=== PATIENT | male | born 1995 | race Caucasian/White ===

== ENCOUNTER 2019-12-17 13:51 | Outpatient (CLI) | payer OTHER, SELFPAY ==
[2019-12-17 14:46] LABS: Basophils Percent Auto 0.3 % (0.2-1.2); Eosinophils Absolute Auto 0.1 K/mm3 (0-0.3); Eosinophils Percent Auto 1.6 % (0-4.4); Hematocrit 42.7 % (42.0-52.0); Hemoglobin 14.4 g/dL (14.0-18.0); Immature Granulocyte Absolute 0.02 K/mm3 (0.00-0.031); Immature Granulocyte Percent A 0.3 % (0-0.5); Lymphocytes Absolute Auto 1.91 K/mm3 (0.9-3.2); Lymphocytes Percent Auto 31.4 % (18.3-44.2); Mean Corpuscular HGB Conc 33.7 g/dl (32-36); Mean Corpuscular Hemoglobin 30.1 pg (26-34); Mean Corpuscular Volume 89.1 fl (80-100); Mean Platelet Volume 9.1 fl (7.4-10.4); Monocytes Absolute Auto 0.4 K/mm3 (0.1-0.6); Monocytes Percent Auto 7.2 % (2.6-8.5); Neutrophils Absolute Auto 3.6 K/mm3 (1.3-6.7); Neutrophils Percent Auto 59.2 % (45.5-73.1); Platelet Count Result 295 k/mm3 (150-375); Red Blood Count 4.79 M/mm3 (4.6-6.20); Red Cell Distribution Width 11.9 % (11.5-14.5); White Blood Count 6.1 K/mm3 (4.5-10.0)
[2019-12-17 15:14] LABS: Alanine Aminotransferase 24 U/L (4-50); Albumin Level 4.6 g/dL (3.5-5.1); Alkaline Phosphatase 72 U/L (38-126); Aspartate Amino Transferase 25 U/L (17-59); Bilirubin,Total 0.5 mg/dL (0.2-1.3); Blood Urea Nitrogen 15 mg/dL (9-20); Calcium 9.1 mg/dL (8.4-10.2); Carbon Dioxide 32 mmol/L (22-30); Chloride 100 mmol/L (98-107); Estimated Glomerular Filt Rate > 60; Glucose 85 mg/dL (75-110); Potassium 4.3 mmol/L (3.4-5.0); Sodium 140 mmol/L (137-145)
== END 2019-12-17 13:52 | disposition home or self-care (01) ==
PROVIDERS: PCP Family Medicine; Visit Provider Family Medicine
DX: R10.9 Unspecified abdominal pain (principal)
CPT/HCPCS: 36415; 80053; 85025

== ENCOUNTER 2020-02-25 06:49 | Outpatient (CLI) | payer OTHER, SELFPAY | END 2020-02-25 06:50 | disposition home or self-care (01) | PROVIDERS: PCP Family Medicine; Visit Provider Internal Medicine Gastroenterology | DX: Z01.818 Encounter for other preprocedural examination (principal); Z11.59 Encounter for screening for other viral diseases | CPT/HCPCS: 87635; C9803; U0003 ==

== ENCOUNTER 2020-02-27 00:51 | Day surgery (SDC) | payer OTHER, SELFPAY ==
[2020-02-22 15:07] VITALS: BMI 23.7
[2020-02-27 06:34] VITALS: BP 120/69; PULSE 75; RESP 16; TEMP 36.9; O2SAT 100
[2020-02-27] MEDS: LACTATED RINGERS 1,000 ML 150 ML IV CONT (06:53)
--- NOTE | 2020-02-27 07:19 | WPDANESEPPF ---
Anes - Initial Pre Proc Eval Procedure: Operation Date: 02/27/20 07:30 Proposed Procedures p Colonoscopy - Eric Guerrero MD Date/Time: 02/27/20 07:19 Surgeon: Eric Guerrero MD Pre Op Diagnosis: Change In Bowel Habits Patient Data Age: 24 Gender: M Height: 5 ft 10 in Weight: 75.2 kg Last Vital Signs Temp 98.5 F 02/27/20 06:34 Pulse 75 02/27/20 06:34 Resp 16 02/27/20 06:34 BP 120/69 02/27/20 06:34 Pulse Ox 100 02/27/20 06:34 Allergies Allergy/AdvReac Type Severity Reaction Status Date / Time No Known Allergies Allergy Verified 02/27/20 06:33 Home Medications Medication Instructions Recorded Confirmed Type No Home Medications 02/22/20 02/27/20 History Patient hx anesthesia problems: none Family hx anesthesia problems: none PMFSH Past Medical History Medical History (Updated 02/19/20 @ 09:26 by Bree Richter) Abnormal cystoscopy Bowel habit changes Chronic pericarditis Hepatitis A Surgical History Surgical History (System 02/19/20 @ 09:26 by Bree Richter) History of appendectomy Social History Social History (System 02/19/20 @ 09:26 by Bree Richter) Smoking status: Current every day smoker Tobacco type: e-cigarettes/vaping Second hand tobacco smoke exposure: Yes Alcohol intake: current Drinks per week: 8 Substance use type: marijuana Gender identity (if verbalized by the patient): Male Spiritual care concerns: No Agree to blood products: Yes Anes - Eval Final PreProcedure Day of Procedure 02/27/20 07:19 Patient weight: normal Heart: regular rate and rhythm Lungs: clear to auscultation Airway: Mallampati scale class II Neurological: alert and oriented Last oral intake: >/= 8 hours ASA classification: II Emergent: no Anesthetic plan: proceed Anesthesia type and monitoring: general GIVS and standard monitoring Informed Consent: The patient's anesthetic plan and its attendant risks and benefits were discussed with the patient/family/POA. Questions were solicited and answers provided to the satisfaction of the patient/family/POA.
--- NOTE | 2020-02-27 07:37 | PM.HPGS ---
History of Present Illness History of Present Illness Consent: Risks, benefits, and alternatives have been discussed and questions answered. Patient agrees to proceed with procedure. Chief complaint: Change In Bowel Habits Narrative: Rivas Perry is a 24 year old male with rlq pain and altered BM, normal CT scan Review of Systems Constitutional: Constitutional: Denies headache(s) and Denies weakness Eyes: Eyes: Denies blurry vision ENT: Reports Normal hearing present, Denies headache(s) and Denies neck pain Cardiovascular: Cardiovascular: Denies chest pain and Denies dyspnea Respiratory: Respiratory: Denies dyspnea Gastrointestinal: Gastrointestinal: Reports no additional gastrointestinal complaints Genitourinary: Genitourinary: Denies dysuria Musculoskeletal: Musculoskeletal: Denies neck pain Integumentary/Breasts: Skin/Breast: Denies dry skin Neurologic: Reports Normal hearing present, Denies headache(s) and Denies weakness Psychiatric: Psychiatric: Denies anxiety Endocrine: Endocrine: Denies change in body appearance Hematologic/Lymphatic: Hematologic/Lymphatic: Denies easy bleeding Allergic/Immunologic: Allergic/Immunologic: Denies urticaria PMFSH Past Medical History Medical History (Updated 02/27/20 @ 07:37 by Eric Guerrero MD) Abnormal cystoscopy Bowel habit changes Chronic pericarditis Hepatitis A RLQ abdominal pain Surgical History Surgical History (System 02/19/20 @ 09:26 by Bree Richter) History of appendectomy Social History Social History (System 02/19/20 @ 09:26 by Bree Richter) Smoking status: Current every day smoker Tobacco type: e-cigarettes/vaping Second hand tobacco smoke exposure: Yes Alcohol intake: current Drinks per week: 8 Substance use type: marijuana Gender identity (if verbalized by the patient): Male Spiritual care concerns: No Agree to blood products: Yes Meds Home Medications and Allergies Home Medications Medication Instructions Recorded Confirmed Type No Home Medications 02/22/20 02/27/20 History Allergies Allergy/AdvReac Type Severity Reaction Status Date / Time No Known Allergies Allergy Verified 02/27/20 06:33 Vital Signs Vital Signs - 24 hr 02/27/20 06:34 Temperature 98.5 F Pulse Rate 75 Respiratory Rate 16 Blood Pressure 120/69 Pulse Oximetry 100 Exam Const: General: comfortable and no acute distress HENMT: General nose exam: Normal nares present Eyes: General: appearance normal, both eyes and all related structures Neck: Neck: no JVD Resp: Auscultation: clear to auscultation bilaterally Cardio: Rate: regular rate Rhythm: regular rhythm GI: Inspection: non-distended GI Palp: Yes Soft to palpation Skin: General skin exam: normal color Neuro: General: gait normal Speech: normal speech Extrem: General: normal to inspection Psych: Mental Status: mental status grossly normal Assessment and Plan Assessment and plan (1) Bowel habit changes: Code(s): R19.4 - Change in bowel habit Status: Acute Assessment and Plan: will proceed with colonoscopy (2) RLQ abdominal pain: Code(s): R10.31 - Right lower quadrant pain Status: Acute
[2020-02-27 08:00] VITALS: BP 101/50; PULSE 72; RESP 14; O2SAT 100
[2020-02-27 08:10] VITALS: BP 111/57; PULSE 60; RESP 16; O2SAT 99
[2020-02-27 08:20] VITALS: BP 104/57; PULSE 62; RESP 18; O2SAT 100
== END 2020-02-27 08:30 | disposition home or self-care (01) ==
PROVIDERS: PCP Family Medicine; Visit Provider Internal Medicine Gastroenterology
PROC: 0DJD8ZZ Inspection of Lower Intestinal Tract, Via Natural or Artificial Opening Endoscopic (ICD-10-PCS; CPT 45378; principal; 2020-02-27 07:30)
DX: R10.31 Right lower quadrant pain (principal); R19.4 Change in bowel habit; D12.3 Benign neoplasm of transverse colon; I31.9 Disease of pericardium, unspecified; F17.290 Nicotine dependence, other tobacco product, uncomplicated
CPT/HCPCS: 45380; 88305; J2001; J2704; J7120

== ENCOUNTER 2025-04-13 11:07 | Emergency (ER) | payer BC, SELFPAY ==
[2025-04-13 11:24] VITALS: BP 153/86; PULSE 112; RESP 16; TEMP 36.9; O2SAT 100
--- NOTE | 2025-04-13 11:34 | ED_ITS ---
HPI - URI/Sore Throat General Chief Complaint: Upper Respiratory Infection Stated Complaint: Swollen Lymph Nodes, Headache, Feels Tired Source: patient Mode of arrival: ambulatory Limitations: no limitations History of Present Illness HPI Narrative: 30 y/o male presented for c/o fatigue, headache, and swollen painful bumps to the left armpit. First noticed 3 days. Says the left under arm pain is worse when moving the arm. Pt states the day of symptom onset he had only 4 hours of sleep. denies sick contacts. Pt denies cough or throat pain, n/v/d/f/c. Taking ibuprofen. tested negative for covid at home yesterday Related Data Allergies Allergy/AdvReac Type Severity Reaction Status Date / Time No Known Allergies Allergy Verified 04/13/25 11:24 Review of Systems Review of Systems: CONSTITUTIONAL: Denies body aches, fever, chills, or sweats. EYES: Denies visual changes, redness, or discharge. ENT: Denies rhinorrhea, congestion CARDIOVASCULAR: Denies chest pain, palpitations, or edema. RESPIRATORY: Denies cough or dyspnea. GASTROINTESTINAL: Denies abdominal pain, nausea, vomiting, or diarrhea. SKIN: reports bumps under left under arm MUSCULOSKELETAL: Denies back pain, joint pain, or myalgia. NEUROLOGIC: Denies headache, numbness, tingling, or weakness. [facility] Past Medical History Medical History Abnormal cystoscopy Bowel habit changes Chronic pericarditis Hepatitis A RLQ abdominal pain Surgical History Surgical History History of appendectomy Family History Family History Grandparent Diabetes mellitus Hypertension Social History Social History Smoking status: Current every day smoker Tobacco type: e-cigarettes/vaping Second hand tobacco smoke exposure: No Alcohol intake: current Drinks per week: 8 Substance use type: marijuana Living arrangements: with friend(s) Occupation/Education: occupation Gender identity (if verbalized by the patient): Male Spiritual care concerns: No Agree to blood products: Yes Comments At time of signature, I have reviewed and agree with nursing past medical, surgical, social and family history unless otherwise noted. Please see nursing chart for further information. There is no relevant family history pertinent to the presenting complaint Exam Narrative: GENERAL: Well-appearing HEAD: Normocephalic, atraumatic. EYES: conjunctivae clear, and EOMI. ENT: Mucous membranes moist. Oropharynx without edema, erythema or lesions. NECK: Supple. No lymphadenopathy CHEST: Clear to auscultation. HEART: Regular rate and rhythm. SKIN: Warm, dry. Left axilla with multiple subcutaneous tender nodules; proximal nodule is surrounded with light erythema, c/w abscess; no fluctuance or drainage; distal nodules are skin colored. NEURO: Alert and oriented x3. Course Course Emergency Course: Patient is aware of diagnosis, understands and agrees to treatment plan. Anticipatory guidance given. Patient agrees to follow-up as directed and is aware of reasons to seek care at the emergency department. Portions of this record may have been created with voice recognition software Level of Care: Express Care Visit Vital Signs Vital signs: Vital Signs Temperature 98.5 F 04/13/25 11:24 Pulse Rate 112 H 04/13/25 11:24 Respiratory Rate 16 04/13/25 11:24 Blood Pressure 153/86 H 04/13/25 11:24 Pulse Oximetry 100 04/13/25 11:24 Temperature 98.5 F 04/13/25 11:24 Pulse Rate 112 H 04/13/25 11:24 Respiratory Rate 16 04/13/25 11:24 Blood Pressure 153/86 H 04/13/25 11:24 Pulse Oximetry 100 04/13/25 11:24 Reviewed MDM - URI/Sore Throat MDM Narrative Medical decision making narrative: negative flu, COVID, strep. Results reviewed with patient. Discussed physical exam findings most c/w abscess to left axilla, Rx abx. Advised supportive measures and signs/symptoms to go to the ER. Pt is appropriate for outpt treatm ent and f/u. Differential Diagnosis Differential diagnosis: Likely upper respiratory infection, otitis media, sinusitis, viral infection, bronchitis, influenza, pharyngitis and other Discharge Plan Discharge Clinical Impression: Abscess of axilla, left Patient Disposition: Home Condition: Stable Instructions: Antibiotic Form, Abscess (ED) Additional Instructions: Under arm; Cleanse with warm soapy water Warm compresses at least 4 times a day to the site to help expel any drainage. Take antibiotic as directed Tylenol and ibuprofen every 8 hours for pain as needed Follow up with your primary care physician in 3 days for a wound check. Go to the Emergency Department immediately if you develop any of the following symptoms: Fevers, Increased redness, pain, or swelling around where your abscess was, generalized weakness or vomiting or any other concerns Flu and Covid negative. Rapid strep swab was negative today You will be notified in a few days if the culture comes back positive for strep, and appropriate antibiotics will be called in at that time. if symptoms are due to a viral illness, it is not treated with antibiotics. Viral symptoms can be present for up to 10-14 days. Recommendations: Flonase spray and Zyrtec for sinus congestion as needed Tylenol every 8 hours as needed for pain/fever Rest and stay hydrated. Patient Language: Belgian Prescriptions: New doxycycline hyclate 100 mg tablet 100 mg PO BID 7 Days Qty: 14 0RF Follow-up/Referrals: Krunal,Daphnie Reed MD [Primary Care Provider] - Time of Disposition: 11:47
[2025-04-13 11:50] LABS: EDCOVIDSCREEN Negative (Negative); EDINFLUASCREEN Negative (Negative); EDINFLUBSCREEN Negative (Negative); EDSTREPNEGPOS1 Negative (Negative)
== END 2025-04-13 11:47 | disposition home or self-care (01) ==
PROVIDERS: Emergency Provider Nurse Practitioner Family; PCP Family Medicine
DX: L02.412 Cutaneous abscess of left axilla (principal); Z20.822 Contact with and (suspected) exposure to COVID-19; F17.290 Nicotine dependence, other tobacco product, uncomplicated; F12.90 Cannabis use, unspecified, uncomplicated
CPT/HCPCS: 87081; 87426; 87804; 87880; 99213; G0463